=== PATIENT | male | born 1950 | race Caucasian/White ===

== ENCOUNTER 2022-01-09 12:36 | Emergency (ER) | payer MEDICARE ==
[2022-01-09 12:44] VITALS: BP 184/82; PULSE 59; RESP 18; TEMP 98.2
[2022-01-09] MEDS ORDERED: LIDOCAINE 1% INJ 10MG/ML (5 ML VIAL-PF) SQ ONE (13:22)
[2022-01-09] MEDS ORDERED: BACITRACIN OINT 1 EACH PACKET TOPICAL ONE (13:23)
--- NOTE | 2022-01-09 13:40 | XR ---
EXAMINATION TYPE: XR finger LT DATE OF EXAM: 01/09/2022 COMPARISON: NONE HISTORY: Pain TECHNIQUE: Three views are submitted. FINDINGS: There is a fracture with bony fragments seen adjacent to the distal phalanx. Soft tissue edema and la ceration noted. Remaining osseous structures intact. Fracture appears to be displaced. IMPRESSION: 1. Displaced fracture distal phalanx with soft tissue edema and suspected laceration. Additional bony fragments are seen along the ulnar surface of the fracture line. Correlate clinically.
[2022-01-09] MEDS ORDERED: DIPH,PERTUS(ACELL)TETVAC-LF 0.5 ML VIAL IM ONE (13:48)
--- NOTE | 2022-01-09 13:50 | ED ---
General Adult HPI - General Chief complaint: Extremity Injury, Upper Stated complaint: Finger Lac Time Seen by Provider: 01/09/22 12:48 Source: patient Mode of arrival: ambulatory Limitations: no limitations - History of Present Illness Initial comments: This 71-year-old male presents emergency Department with left hand pointer finger laceration. Patient states he was on the shop when his table saw slipped and caused a laceration to his left hand second finger. Patient denies being on any blood thinners. He states he is not up-to-date on his tetanus shot. Patient denies any loss of sensation or loss of range of motion. Patient denies any chest pain, shortness of breath, abdominal pain, nausea, vomiting, change in bowel or bladder, change of vision, tinnitus, dizziness, headache. - Related Data Previous Rx's Medication Instructions Recorded Cephalexin [Keflex] 500 mg PO Q6HR #40 cap 01/09/22 Allergies Allergy/AdvReac Type Severity Reaction Status Date / Time No Known Allergies Allergy Verified 01/09/22 12:40 Review of Systems ROS Statement: Those systems with pertinent positive or pertinent negative responses have been documented in the HPI. ROS Other: All systems not noted in ROS Statement are negative. Past Medical History Additional Past Medical History / Comment(s): pressure induced urticaria. History of Any Multi-Drug Resistant Organisms: None Reported Past Surgical History: No Surgical Hx Reported Past Psychological History: No Psychological Hx Reported Smoking Status: Never smoker Past Alcohol Use History: None Reported Past Drug Use History: None Reported General Exam Limitations: no limitations General appearance: alert, in no apparent distress Head exam: Present: atraumatic, normocephalic, normal inspection Eye exam: Present: normal appearance, PERRL, EOMI. Absent: scleral icterus, conjunctival injection, periorbital swelling ENT exam: Present: normal exam, mucous membranes moist Neck exam: Present: normal inspection, full ROM. Absent: tenderness, meningismus, lymphadenopathy Respiratory exam: Present: normal lung sounds bilaterally. Absent: respiratory distress, wheezes, rales, rhonchi, stridor Cardiovascular Exam: Present: regular rate, normal rhythm, normal heart sounds. Absent: systolic murmur, diastolic murmur, rubs, gallop, clicks GI/Abdominal exam: Present: soft, normal bowel sounds. Absent: distended, t enderness, guarding, rebound, rigid Extremities exam: Present: full ROM, normal capillary refill, other (Bilateral radial and ulnar pulses palpable. Full range of motion in all 10 digits. No loss of sensation in left hand pointer finger any other digit. Second finger left hand with 3 cm laceration) Back exam: Present: normal inspection, full ROM. Absent: CVA tenderness (R), CVA tenderness (L), paraspinal tenderness, vertebral tenderness Neurological exam: Present: alert, oriented X3, CN II-XII intact Psychiatric exam: Present: normal affect, normal mood Skin exam: Present: warm, dry, intact, normal color. Absent: rash Course Vital Signs 01/09/22 12:42 Temperature 98.2 F Pulse Rate 59 L Respiratory 18 Rate Blood Pressure 184/82 O2 Sat by Pulse 98 Oximetry Procedures - Laceration Laceration #1 Consent Obtained: verbal consent Indication: laceration Site: hand Size (cm): 3 Description: irregular Depth: simple, single layer Anesthetic Used: lidocaine 1% Anesthesia Technique: local infiltration Pre-repair: wound explored, irrigated extensively Type of Sutures: nylon Size of Sutures: 4-0, 5-0 Number of Sutures: 8 Technique: simple, interrupted Patient Tolerated Procedure: well, no complications Medical Decision Making - Medical Decision Making This 71-year-old male presents to the emergency department with left hand second finger 3cm laceration when using a table saw. X-ray left finger impression: Displaced fracture distal phalanx with soft tissue edema and suspected laceration. Additional bony fragments are seen along the ulnar surface of the fracture line. I did speak with C[facility] from [facility] who instructed me to place sutures into laceration and the patient see Dr. Blanca Cannon in the next 1-2 days. Eight 4-0 sutures were placed. Hemostasis was obtained. Patient was placed into a finger splint and instructed to keep in place until seen by orthopedics. Patient placed on Keflex. Patient instructed to have sutures removed in 7-10 days if orthopedics does not remove them in the next 1-2 days. Strict return precautions were discussed. Patient verbally agree to plan. Patient sent home in stable condition. Case discussed in detail with my attending, . Disposition Clinical Impression: Fracture of distal phalanx of left index finger, Laceration of finger of left hand Disposition: HOME SELF-CARE Instructions (If sedation given, give patient instructions): Care For Your Stitches (ED), Finger Fracture (ED), Finger Laceration (ED) Additional Instructions: Please follow-up with [facility] in next 24 hours. Follow-up with your primary care provider next 1-2 days. Return to the emergency department with any worsening, concerning, or new symptoms. Take Keflex as directed. Return to have sutures removed in 7 days. Prescriptions: Cephalexin [Keflex] 500 mg PO Q6HR #40 cap Is patient prescribed a controlled substance at d/c from ED?: No Referrals: Blanca Cannon DO [Doctor of Osteopathic Medicine] - 1-2 days Bryce Blackburn MD [Primary Care Provider] - 1-2 days Time of Disposition: 14:59
== END 2022-01-09 15:31 | disposition home or self-care (01) ==
LOC: EC 12:36
DX: S61.211A Laceration without foreign body of left index finger without damage to nail, initial encounter (principal); S62.631A Displaced fracture of distal phalanx of left index finger, initial encounter for closed fracture; W08.XXXA Fall from other furniture, initial encounter
CPT/HCPCS: 73140; 90715; 12002; 90471; 99283; J2001